=== PATIENT | male | born 1995 | race Caucasian/White ===

== ENCOUNTER 2022-11-24 09:51 | Emergency (ER) | payer OTHER, SELFPAY ==
[2022-11-24 09:59] VITALS: BP 133/77; PULSE 89; RESP 16; TEMP 37.3; O2SAT 98
--- NOTE | 2022-11-24 10:23 | ED.URI ---
HPI - URI/Sore Throat General Chief Complaint: Upper Respiratory Infection Stated Complaint: Sore Throat/Fever Time Seen by Provider: 11/24/22 10:05 Source: patient Mode of arrival: ambulatory Limitations: no limitations History of Present Illness HPI Narrative: Stew is a 26-year-old male patient presenting to the clinic today with complaints of sore throat, fever, nasal congestion, productive cough with green phlegm, and headaches that has been ongoing since November 06. MD elicited complaint: sore throat and nasal congestion Related Data Allergies Allergy/AdvReac Type Severity Reaction Status Date / Time No Known Allergies Allergy Unknown Verified 11/24/22 10:21 Review of Systems Review of Systems: Pertinent positives per HPI. Patient denies any rash, visual changes, dizziness, shortness of breath, chest pain, palpitations, nausea, vomiting, diarrhea, constipation, abdominal pain, or any urinary issues. PMFSH Comments At the time of my signature, I reviewed and agree with the nursing past medical, surgical, social, and family history. There is no relevant family history pertinent to the patient complaint. Exam Narrative: General: Well-developed, well nourished, in no apparent distress Head: Normocephalic, atraumatic Eyes: Pupils equally round and reactive to light bilaterally, EOM intact, sclera and conjunctive clear, no discharge, lids normal Ears: TMs intact and clear, ear canals clear, no drainage, grossly hearing normal. Nose: Nares patent, clear nasal discharge, moderate inflammation, maxillary and frontal sinus tenderness. Mouth: Oral pharynx without lesions or masses, good dentition, MMM. Neck: Supple, trachea midline, no enlargement of anterior or posterior cervical nodes, no thyroid masses or goiter palpable. Cardio: Regular rate and rhythm, s1 and s2 normal, no murmur appreciated. Resp: Clear to auscultation bilaterally, no rhonchi, rales, wheezing or rubs Course Course Emergency Course: Portions of this record may have been created with voice recognition software. Level of Care: Express Care Visit Vital Signs Vital signs: Vital Signs Temperature 37.3 C 11/24/22 09:59 Pulse Rate 89 11/24/22 09:59 Respiratory Rate 16 11/24/22 09:59 Blood Pressure 133/77 11/24/22 09:59 Pulse Oximetry 98 11/24/22 09:59 Oxygen Delivery Room Air 11/24/22 09:59 Temperature 37.3 C 11/24/22 09:59 Pulse Rate 89 11/24/22 09:59 Respiratory Rate 16 11/24/22 09:59 Blood Pressure 133/77 11/24/22 09:59 Pulse Oximetry 98 11/24/22 09:59 Oxygen Delivery Room Air 11/24/22 09:59 Vital signs reviewed MDM - URI/Sore Throat MDM Narrative Medical decision making narrative: At the time of visit patient is resting comfortably on exam table. I suspect the patient has acute bacterial rhinosinusitis/pharyngitis. Prescription for Augmentin and prednisone was sent to the pharmacy and supportive measures were discussed with the patient he voiced understanding of discharge instructions and agrees to treatment plan. Differential Diagnosis Differential diagnosis: Likely upper respiratory infection, otitis media, sinusitis, viral infection, bronchitis, influenza, pharyngitis and other ( COVID) Discharge Plan Discharge Clinical Impression: Acute bacterial rhinosinusitis Patient Disposition: Home, Self-Care Condition: Stable Instructions: Antibiotic Form, Rhinosinusitis (ED) Additional Instructions: Take prescription medications only as prescribed- Augmentin and prednisone Increase fluids and stay well hydrated Tylenol/motrin for pain/fever Flonase and OTC antihistamines as directed Vicks vapor rub to open sinuses Sinus rinses for congestion Cepacol spray, cough drops, throat lozenges, warm tea with honey/lemon, gargle salt water to soothe throat BRAT diet for diarrhea Clear liquids x 24 hours then advance as tolerated for nausea/vomiting Go to the ED if you
== END 2022-11-24 10:30 | disposition home or self-care (01) ==
PROVIDERS: Emergency Provider Nurse Practitioner Family; PCP Internal Medicine
DX: J01.90 Acute sinusitis, unspecified (principal)
CPT/HCPCS: 99203; G0463

== ENCOUNTER 2023-05-11 00:10 | Emergency (ER) | payer OTHER, SELFPAY ==
[2023-05-11] VITALS (17 sets, daily range): BP systolic 109–138; BP diastolic 54–86; PULSE 41–94; RESP 15–27; TEMP 36.3–36.8; O2SAT 97–100
--- NOTE | ~2023-05-11 | XR_ITS ---
Portable chest x-ray Comparison: 05/08/2015 Clinical History: Hematemesis Findings: Lungs are clear, without focal consolidation or pleural effusion. Cardiomediastinal silho uette is stable. Bones and soft tissues are unremarkable. Impression: Normal chest. Reviewed, dictated and finalized at [facility]. Impression: Normal chest.
[2023-05-11] MEDS: PANTOPRAZOLE SODIUM IV 40 MG VIAL IV PUSH ×2 (00:26→01:20)
[2023-05-11] MEDS: METOCLOPRAMIDE HCL INJ 10 MG/2 ML VIAL IV PUSH ×2 (00:26→01:17)
--- NOTE | 2023-05-11 00:37 | ED.NAVMDI ---
HPI - Nausea/Vomiting/Diarrhea General Chief complaint: Nausea/Vomiting/Diarrhea Stated complaint: vomiting blood Time Seen by Provider: 05/11/23 00:25 History of Present Illness HPI Narrative: Patient with history of achalasia, with multiple surgeries including surgeries to fix the sphincter, presents after he started throwing up blood about 40 minutes ago, this is happened about 7 years ago however this time was much worse. They try to go to [place] where his doctors are, but could not make it so came here. Related Data Allergies Allergy/AdvReac Type Severity Reaction Status Date / Time No Known Allergies Allergy Unknown Verified 05/11/23 00:30 Review of Systems Review of Systems: CONST: No fever. HEENT: No sore throat C/V: No chest pain RESP: No cough GI: Reports epigastric abdominal pain and hematemesis : No dysuria. M/S: No joint pain. SKIN: No rash. NEURO: Lightheadedness PSYCH: [No depression] [facility] Past Medical History Medical History (Updated 05/11/23 @ 01:54 by Linnette Long MD) Achalasia Exam Narrative: EXAMINATION OF ORGAN SYSTEMS/BODY AREAS: Constitutional: Vital signs per nursing GENERAL: Actively retching pricila blood HEAD: Normal with no signs of head trauma. EYES: EOMI, conjunctiva normal ENT: Some blood in mouth, nares, but speaking normally and airway intact LUNGS: Nonlabored breathing. HEART: [Regular rate and rhythm] ABD: [Soft], [slight tenderness to palpation epigastric abdomen] EXT: Normal range of motion SKIN: [No rashes or lesions.] NEURO: [Alert and oriented x 3. No gross focal sensory or strength deficits.] PSYCH: Normal affect Course Vital Signs Vital signs: Vital Signs Temperature 98.3 F 05/11/23 00:27 Pulse Rate 94 05/11/23 00:27 Respiratory Rate 15 05/11/23 00:27 Blood Pressure 118/72 05/11/23 00:27 Pulse Oximetry 100 05/11/23 00:27 Oxygen Delivery Room Air 05/11/23 00:27 Temperature 97.5 F L 05/11/23 01:48 Pulse Rate 92 05/11/23 01:48 Respiratory Rate 18 05/11/23 01:48 Blood Pressure 138/85 05/11/23 01:48 Pulse Oximetry 100 05/11/23 01:48 Oxygen Delivery Room Air 05/11/23 00:27 MDM - Nausea/Vomiting/Diarrhea MDM Narrative Medical decision making narrative: 27-year-old male presenting with upper GI bleeding, vital signs stable, on exam he is actively retching blood, multiple large-bore IVs immediately placed, he is placed on monitors, IV Reglan and Protonix started as well as octreotide, and massive transfusion protocol initiated. Crash cart and airway supplies at bedside, I did page our plastics seasoner operator who stated that since this seems to be a very complicated case, he recommends transfer to [place]; furthermore he is not actually institutional custodian for another few hours. [facility] called; patient had another episode of hematemesis after octreotide and therefore I discontinued it especially since patient has no cirrhosis history; additional reglan dose and protonix given. IVF ordered. [facility] called back, d/w Dr Zavala his surgeon at [facility] who recommends ER to ER transfer. Plan d/w pt and family who are agreeable to this. Dr Marrero at [facility] ER accepts. Patient nauseous again; EKG showing normal QTc here, rate, TN, QRS, so I will give dose of haldol with benadryl. total crit care time 61 min Lab Data 05/11/23 00:35 05/11/23 00:35 Labs: Lab Results 05/11/23 Range/Units 00:35 WBC 9.7 (4.5-10.0) K/mm3 RBC 4.26 L (4.6-6.20) M/mm3 Hgb 13.2 L (14.0-18.0) g/dL Hct 39.0 L (42.0-52.0) % MCV 91.5 (80-100) fl MCH 31.0 (26-34) pg MCHC 33.8 (32-36) g/dl RDW 12.0 (11.5-14.5) % Plt Count 287 (150-375) k/mm3 MPV 9.2 (7.4-10.4) fl Immature Gran % (Auto) 0.2 (0-0.5) % Neut % (Auto) 46.0 (45.5-73.1) % Lymph % (Auto) 41.3 (18.3-44.2) % Cedar % (Auto) 8.3 (2.6-8.5) % Eos % (Auto) 3.5 (0-4.4) % Baso % (Auto) 0.7 (0.2-1.2) % Lymph # (Auto) 4.00 H (0.9-3.2) K/mm3
[2023-05-11 00:42] LABS: Basophils Absolute Auto 0.1 K/mm3 (0.0-0.1); Basophils Percent Auto 0.7 % (0.2-1.2); Eosinophils Absolute Auto 0.3 K/mm3 (0-0.3); Eosinophils Percent Auto 3.5 % (0-4.4); Hemoglobin 13.2 g/dL (14.0-18.0); Immature Granulocyte Absolute 0.02 K/mm3 (0.00-0.031); Immature Granulocyte Percent A 0.2 % (0-0.5); Lymphocytes Percent Auto 41.3 % (18.3-44.2); Mean Corpuscular HGB Conc 33.8 g/dl (32-36); Mean Corpuscular Volume 91.5 fl (80-100); Mean Platelet Volume 9.2 fl (7.4-10.4); Monocytes Absolute Auto 0.8 K/mm3 (0.1-0.6); Monocytes Percent Auto 8.3 % (2.6-8.5); Neutrophils Absolute Auto 4.5 K/mm3 (1.3-6.7); Platelet Count Result 287 k/mm3 (150-375); Red Blood Count 4.26 M/mm3 (4.6-6.20); White Blood Count 9.7 K/mm3 (4.5-10.0)
[2023-05-11 00:54] LABS: Alanine Aminotransferase 23 U/L (6-50); Albumin Level 4.1 g/dL (3.5-5.1); Alkaline Phosphatase 70 U/L (38-126); Anion Gap 3 mmol/L (8-16); Aspartate Amino Transferase 24 U/L (17-59); Bilirubin,Total 0.5 mg/dL (0.2-1.3); Blood Urea Nitrogen 26 mg/dL (9-20); Calcium 8.6 mg/dL (8.4-10.2); Carbon Dioxide 29 mmol/L (22-30); Chloride 105 mmol/L (98-107); Estimated CRCL calculation 115 ml/min; Estimated Glomerular Filt Rate > 60; Glucose 126 mg/dL (65-110); Lipase 56 U/L (23-300); Potassium 3.7 mmol/L (3.4-5.0); Sodium 137 mmol/L (137-145)
[2023-05-11] MEDS: OCTREOTIDE ACETATE 50 MCG/ML VIAL IV PUSH (01:06)
--- NOTE | 2023-05-11 01:10 | PC.NURSE ---
Patient started vomitting after recieving Octreotide at 0110. Dr. Long notified. Pt blood pressure at 109/75 and Heart rate before vomitting was 42. dR. Long advised to not stop blood infusion. Reglan 10 IV push was ordered.
--- NOTE | 2023-05-11 01:13 | PC.NURSE ---
Dr. Long verbal order to not start Octreotide acetate and 10mg of Reglan.
--- NOTE | 2023-05-11 01:17 | PC.NURSE ---
Dr. Long verbal order back to give another 40 of Protonix. This RN gave protonix at 0117.
--- NOTE | 2023-05-11 01:28 | PC.NURSE ---
Addendum entered by Milagros Xavier, TECH 05/11/23 02:43: [facility]: CALLED @0148- ETA: 0300 [facility]: CALLED @0152- ETA 0230 [facility] ARRIVED 0239 Original Note: PER EDP TRANSFER TO [facility]: CALLED @0120- DECLINED DUE TO LOW VIABILITY
[2023-05-11] MEDS: TUBING, BLOOD SET 2 EACH XX (01:34)
[2023-05-11] MEDS: SODIUM CHLORIDE 0.9% IV 250 ML 30 ML IV CONT ×2 (01:34→02:48)
--- NOTE | 2023-05-11 01:42 | ECG_ITS ---
Measurements Intervals [place] Rate: 85 P: 37 VT: 147 QRS: 61 QRSD: 98 T: 51 QT: 337 QTc: 403 Interpretive Statements SINUS RHYTHM NORMAL ECG NO PREVIOUS ECG AVAILABLE FOR COMPARISON Electronically Signed On 05-11-2023 11:57:01 CDT by Hector Ramos M.D.
[2023-05-11] MEDS: LACTATED RINGERS 1,000 ML 999 ML IV CONT (01:50)
[2023-05-11] MEDS: diphenhydrAMINE HCl INJ 50 MG/ML VIAL 25 MG IV PUSH (01:55)
[2023-05-11] MEDS: HALOPERIDOL LACTATE 5 MG/ML VIAL IV PUSH (01:56)
--- NOTE | 2023-05-11 02:07 | PC.NURSE ---
50 of fentanyll given via verbal order read back from Dr. Long due to increased pain and vomitting.
[2023-05-11] MEDS: fentaNYL CITRATE INJ (*CRX) 100 MCG/2 ML VIAL (02:10)
--- NOTE | 2023-05-11 02:13 | PC.NURSE ---
Dr. Long ordered another unit of blood to be transfusing while patient is being transferred. This RN called blood bank to have blood ready. This RN talked to Lindy in blood bank who stated she could have the blood ready before the patient was being transferred.
[2023-05-11] MEDS: TUBING, BLOOD SET 1 EACH XX (02:48)
--- NOTE | 2023-05-11 02:49 | PC.NURSE ---
EMS arrived to transport pt. Waited 15 minutes after start of blood transfusion. Last vitals were documented.
== END 2023-05-11 02:54 | disposition short-term general hospital (02) ==
PROVIDERS: Emergency Provider Emergency Medicine; PCP Internal Medicine
DX: K92.0 Hematemesis (principal)
CPT/HCPCS: 36415; 36430; 71045; 80053; 83690; 85025; 86850; 86900; 86901; 86920; 93005; 96361; 96374; 96375; 96376; 99285; C9113; J1200; J1630; J2354; J2765; J3010; J7050; J7120; P9016

== ENCOUNTER 2023-10-20 18:48 | Emergency (ER) | payer OTHER, SELFPAY ==
[2023-10-20 19:11] VITALS: BP 133/71; PULSE 93; RESP 16; TEMP 37.1; O2SAT 100
== END 2023-10-20 19:15 | disposition left against medical advice (07) ==
PROVIDERS: PCP Internal Medicine
DX: R10.9 Unspecified abdominal pain (principal)
CPT/HCPCS: 99199

== ENCOUNTER 2025-10-25 13:35 | Emergency (ER) | payer OTHER, SELFPAY ==
--- NOTE | ~2025-10-25 | XR_ITS ---
EXAMINATION: XR finger 3rd LT min 2V DATE: 10/25/2025 14:12 INDICATION: Trauma to the left third digit with exposed nail TECHNIQUE: Dorsal palmar, lateral and oblique views of the left third digit were obtained COMPARISON: None FINDINGS: Bone alignment is normal. No fracture. Joint spaces are normal. There is bandaging material about the distal left third digit. Soft tissues are otherwise unremarkable. IMPRESSION: 1. No osseous abnormality. Reviewed, dictated and finalized at location [facility]. [facility] IMPRESSION: 1. No osseous abnormality.
[2025-10-25 13:47] VITALS: BP 142/90; PULSE 91; RESP 16; TEMP 36.5; O2SAT 100
--- NOTE | 2025-10-25 15:27 | ED.GENADULT ---
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 He was working, a 2 x 4 hit a nail in it sliced across his finger. He denies any motor weakness. Tetanus is up-to-date. Related Data Allergies Allergy/AdvReac Type Severity Reaction Status Date / Time No Known Allergies Allergy Unknown Verified 10/25/25 13:35 Review of Systems Review of Systems: All systems reviewed & are unremarkable except as noted in HPI and below [facility] Past Medical History Medical History (Updated 10/25/25 @ 16:38 by Son Oliver MD) Achalasia Exam Narrative: EXAMINATION OF ORGAN SYSTEMS/BODY AREAS: Constitutional: Vital signs per nursing GENERAL:No acute distress, non-toxic appearing. HEAD: Normal with no signs of head trauma. EYES: EOMI, conjunctiva normal ENT: Hearing grossly intact LUNGS: Nonlabored breathing. HEART: Regular rate and rhythm EXT: Normal range of motion SKIN: No rashes or lesions. MSK exam, there is a 4 cm laceration on the palmar aspect of the 3rd digit on the left. There is no weakness with flexion extension abduction 80 duction of any joint of the hand itself. No exposed tendon. NEURO: Alert. No gross focal sensory or strength deficits. PSYCH: Normal affect Course Vital Signs Vital signs: Vital Signs Temperature 36.5 C 10/25/25 13:47 Pulse Rate 91 10/25/25 13:47 Respiratory Rate 16 10/25/25 13:47 Blood Pressure 142/90 H 10/25/25 13:47 Pulse Oximetry 100 10/25/25 13:47 Oxygen Delivery Room Air 10/25/25 13:47 Temperature 36.5 C 10/25/25 13:47 Pulse Rate 91 10/25/25 13:47 Respiratory Rate 16 10/25/25 13:47 Blood Pressure 142/90 H 10/25/25 13:47 Pulse Oximetry 100 10/25/25 13:47 Oxygen Delivery Room Air 10/25/25 13:47 Procedures Laceration Laceration 1: Site: hand Side (If applicable): left Size (cm): 4 Description: flap Depth: simple, single layer Pre-repair: irrigated ====== Skin Level ====== Skin layer closed with: prolene Size (cm): 5-0 Number of sutures: 4 Technique: simple, interrupted ====== Subcutaneous Layer ====== ====== Muscle Layer ====== ====== Tendon Layer ====== Other Procedure Procedure 1: Other Procedure: I performed a digital block of the 3rd digit on the left 2% lidocaine the usual fashion. The patient tolerated the procedure well. MDM Differential Diagnosis Differential Diagnosis: 29-year-old male presents with laceration of the left digit. He has intact neurovascular function. Did obtain a x-ray to rule out foreign body or fracture which was negative per my interpretation. Wounds irrigated and approximated as documented below. Patient was instructed return 7-10 days for suture removal sooner for any purulent discharge redness fevers chills or other concerning symptoms. Otherwise all questions answered discharged in stable condition Imaging Data Attestation: I personally reviewed and interpreted this imaging study as follows: My impression: X-rays negative for any osseous abnormality per my interpretation Radiologist's impression: ITS Impressions Finger X-Ray 10/25/25 14:13 IMPRESSION: 1. No osseous abnormality. Discharge Plan Discharge Clinical Impression: Laceration Patient Disposition: Home Condition: Stable Instructions: Care For Your Stitches (ED), Laceration (ED) Patient Language: Azeri Prescriptions: No Action amoxicillin-pot clavulanate 875-125 mg tablet 1 tablet PO Q12H 10 Days Qty: 20 0RF prednisone 20 mg tablet 40 mg PO DAILY 5 Days Qty: 10 0RF Follow-up/Referrals: Mikala,MD Nilsa [Primary Care Provider, Unknown] Time of Disposition: 16:38
[2025-10-25] MEDS: LIDOCAINE 1% LOCAL INJ 10 ML VIAL 5 ML INFILTRATE (16:04)
[2025-10-25 16:52] VITALS: BP 134/81; PULSE 82; RESP 16; TEMP 36.4; O2SAT 100
== END 2025-10-25 16:54 | disposition home or self-care (01) ==
PROVIDERS: Emergency Provider Emergency Medicine; PCP Internal Medicine
DX: S61.213A Laceration without foreign body of left middle finger without damage to nail, initial encounter (principal); W45.0XXA Nail entering through skin, initial encounter
CPT/HCPCS: 12002; 73140; 99283; J2003